=== PATIENT | female | born 1995 | race Two or more races ===

== ENCOUNTER 2018-04-24 20:12 | Emergency (ER) | payer SELFPAY ==
[~2018-04-24] VITALS: Ht 154.9 cm; Wt 56.7 kg
--- NOTE | 2018-04-24 20:25 | NUR ---
PT CAME TO EMERGENCY DEPT. COMPLAINING OF INTERMITTENT CRAMPING X 1 WEEK. PT STATES THE PAIN IS ON AND OFF 9/. NO BLEEDING. PT STATES SHE TOOK 3 TESTS AT HOME AND THEY ALL CAME POSITIVE. PT AXO4. RESPIRATIONS EVEN AND UNLABORED. PT PUT ON THE MONITOR AND PULSE OX.
--- NOTE | 2018-04-24 20:52 | NUR ---
FILM TOUCH UP INSPECTOR AT BEDSIDE.
--- NOTE | 2018-04-24 20:52 | NUR ---
US AT BEDSIDE.
[2018-04-24 20:55] LABS: BASOPHILS # (AUTO) 0.1 /CMM (0.0-0.2); BASOPHILS % (AUTO) 0.7 % (0.0-2.0); HEMATOCRIT 41 % (33-45); HEMOGLOBIN 13.7 g/dL (11.5-14.8); LYMPHOCYTES # (AUTO) 2.4 /CMM (0.8-4.8); LYMPHOCYTES % (AUTO) 22.9 % (20.0-44.0); MEAN CORPUSCULAR HGB CONC 33 g/dl (31.0-36.0); MEAN CORPUSCULAR VOLUME 87 fL (82-100); MONOCYTES # (AUTO) 0.9 /CMM (0.1-1.30); MONOCYTES % (AUTO) 8.9 % (2.0-12.0); NEUTROPHILS # (AUTO) 6.8 /CMM (1.8-8.9); NEUTROPHILS % (AUTO) 64.5 % (43.0-81.0); PLATELET COUNT (AUTO) 326 /CMM (150-450); RED BLOOD CELL COUNT(AUTO) 4.72 MIL/uL (4.0-5.2); WHITE BLOOD COUNT (AUTO) 10.5 K/uL (4.3-11.0)
[2018-04-24 20:57] LABS: APPEARANCE,URINE Clear (CLEAR); BILIRUBIN,URINE Negative (NEGATIVE); BLOOD, URINE Negative Ery/uL (NEGATIVE); COLOR,URINE Yellow (YELLOW); KETONES,URINE Negative (NEGATIVE); LEUKOCYTE ESTERASE ,URINE Small (NEGATIVE); NITRITE, URINE Negative (NEGATIVE); PH,URINE 5.5 (5.0-8.0); PROTEIN,URINE Negative (NEGATIVE); UGLUCOSE Negative (NEGATIVE); UROBILINOGEN,URINE 0.2 EU/dL (0.2)
[2018-04-24 21:05] LABS: CALCIUM, SERUM 9.6 mg/dL (8.5-10.1); CREATININE 0.8 mg/dL (0.6-1.3); POTASSIUM 3.3 mmol/L (3.5-5.1)
[2018-04-24 21:15] LABS: BACTERIA,URINE Moderate /HPF (None Seen); SQUAMOUS EPITHELIAL CELL,UR Many /HPF (None Seen)
[2018-04-24 21:16] LABS: ALBUMIN 3.9 g/dL (3.4-5.0); BILIRUBIN,DIRECT 0.1 mg/dL (0.0-0.2); BILIRUBIN,TOTAL 0.2 mg/dL (0.2-1.0); TOTAL PROTEIN, SERUM 8.1 g/dL (6.4-8.2)
[2018-04-24 21:17] LABS: RBC,URINE 0-2 /HPF (0-2)
[2018-04-24 21:48] VITALS: BP 128/80
== END 2018-04-24 21:49 | disposition home or self-care (01) ==
LOC: ER 20:15
DX: O23.41 Unspecified infection of urinary tract in pregnancy, first trimester (principal)
CPT/HCPCS: 36415; 76805; 80048; 80076; 81001; 84702; 85025; 87086; 99284; A4606; 81000-TC